=== PATIENT | male | born 1960 | race Caucasian/White ===

== ENCOUNTER 2019-07-10 11:48 | Inpatient (IN) | payer OTHER, BC ==
[2019-07-10] VITALS (506 sets, daily range): BP systolic 126–182; BP diastolic 76–124; PULSE 93–154; TEMP 97.6–99.1; O2SAT 80–100
[~2019-07-10] VITALS: Ht 172.7 cm; Wt 71.9 kg
[~2019-07-10 11:48] MED LIST: EFFEXOR 75M75 MG/TAB PO
--- NOTE | 2019-07-10 12:40 | NUR ---
Patient arrives via EMS to ICU 1 and is transferred to bed and monitors. Patient is A&Ox3, reports manageable pain to left wrist which is wrapped with 4x4 gauze and coban for pressure dressings. Radial pulse distal to dressing site is readily palpable. See associated documentation of VS and assessment. Peripheral IV sites x2 are uncomplicated and flush well. Care assumed at this time.
--- NOTE | 2019-07-10 13:04 | NUR ---
Dr. De Leon notified of patient arrival and location. states he will be in shortly.
--- NOTE | 2019-07-10 13:15 | NUR ---
Dr. De Leon at bedside and takes down dressing to left wrist for assessment of wound. POC discussed to include operative wash out of wound and suture to affected tissues. Patient is agreeable to this. Care ongoing.
--- NOTE | 2019-07-10 13:30 | NUR ---
Dr. Layton rounds at this time. All orders as entered CPOE.
--- NOTE | 2019-07-10 14:38 | NUR ---
Patient departs with OR staff x2. LR sent on straight tubing per verbal request of PAPER GUILLOTINE OPERATOR. Patient chart with signed consent is sent with and verbal confirmation exchanged with OR staff regarding patient's suicide precaution and 1:1 status to be maintained.
[2019-07-10] MEDS ORDERED: MELATONIN EXTRA1 TAB PO (14:45)
--- NOTE | 2019-07-10 16:35 | NUR ---
Patient returns from PACU post operatively with prior report recieved from GIOVANNA Freeman. Patient is returned to ICU monitors. VS as charted. Patient is A&Ox3 with slightly impulsive behavior noted at this time. Left arm with adaptic, 4x4's, softroll, kerlix, plaster splint and ANA wrap in place.
--- NOTE | 2019-07-10 16:45 | NUR ---
Dr. De Leon called and request made for Lovenox for VTE prophylaxis. provides VORB for pharmacy to dose this. See associated CPOE order. Care ongoing.
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
--- NOTE | 2019-07-10 19:10 | NUR ---
PATIENT TALKATIVE ABOUT SELF. MAKES EYE CONTACT, WANTS TO LEAVE
[2019-07-10 21:48] LABS: HEMOGLOBIN 12.4 g/dl (13.5-18.0)
[2019-07-10 22:07] LABS: HEMATOCRIT 36.3 % (42.0-52.0)
[2019-07-11] VITALS (803 sets, daily range): BP systolic 122–1174; BP diastolic 11–124; PULSE 59–121; TEMP 97.1–98.5; O2SAT 49–100
--- NOTE | 2019-07-11 03:15 | NUR ---
PATIENT AND STAFF SPONGE BATH, CHANGE OF LINEN, FROM 0315 TO 0400,PATIENT BECOMES MORE COOPERATIVE AFTER CLEANING, FLORES REMOVED CAUSES BURNING SENSATION WHEN INSERTED
[2019-07-11 05:25] LABS: BASO % 0.1 % (0.0-2.0); GRAN # 5.6 (1.4-6.5); GRAN % 83.2 % (42.2-75.2); HEMOGLOBIN 11.3 g/dl (13.5-18.0); LYMPH # 0.5 (1.2-3.4); MEAN CELL VOLUME 95 fl (80.0-100.0); MEAN CORPUSCULAR HEMOGLOBIN 33 pg (27.0-31.0); MEAN CORPUSCULAR HGB CONC 35 g/dl (33.0-37.0); MONO # 0.6 (0.1-0.6); MONO % 9.1 % (1.7-9.3); PLATELET COUNT 248 K/mm3 (130-400); RED BLOOD COUNT 3.42 M/mm3 (4.20-5.60); REDCELL DISTRIBUTION WIDTH-CV 12.2 % (11.5-14.5)
[2019-07-11 05:26] LABS: HEMATOCRIT 32.6 % (42.0-52.0)
[2019-07-11 05:29] LABS: INR 0.8 (0.8-3.0); PROTHROMBIN TIME 9.6 SECONDS (9.7-12.8)
[2019-07-11 05:33] LABS: ALANINE AMINOTRANSFERASE 54 U/L (21-72); ALBUMIN 3.6 gm/dL (3.5-5.0); ALKALINE PHOSPHATASE 86 U/L (50-136); ANION GAP 7 mmol/L (7-16); AST,SGOT 38 U/L (15-37); BILIRUBIN,TOTAL 0.4 mg/dL (0.0-1.0); BLOOD UREA NITROGEN 11 mg/dL (9-20); CALCIUM 8.9 mg/dL (8.4-10.2); CARBON DIOXIDE 24 mmol/L (22-30); CHLORIDE 99 mmol/L (98-107); CREATININE, serum 0.81 (0.66-1.25); GLUCOSE 147 mg/dL (74-106); MAGNESIUM 2.2 mg/dL (1.6-2.3); PHOSPHOROUS 2.8 mg/dL (2.5-4.5); POTASSIUM 4.5 mmol/L (3.4-5.0); SODIUM 131 mmol/L (137-145); TOTAL PROTEIN 6.3 gm/dL (6.4-8.2)
[2019-07-11 05:39] LABS: ALCOHOL(ethanol),MEDICAL < 10 mg/dL
--- NOTE | 2019-07-11 07:10 | NUR ---
Bedside report recieved from Gavin HEREDIA. Patient sitting on side of bed, very talkative. Has multiple requests and concerns for this nurse.
--- NOTE | 2019-07-11 09:44 | NUR ---
[facility] screeners in room with patient.
--- NOTE | 2019-07-11 10:57 | NUR ---
Calls nurse to room and asks if "the lady has made her decision? Are they going to hang me?" Informed patient that I haven't spoken to her yet and that they don't hang people, they are here to help him. Very tearful
--- NOTE | 2019-07-11 13:10 | NUR ---
Patient out of bed and alarm sounds, RN at bedside. Multiple attempts to redirect and finally able to get back to side of bed. RN turns back and patient stands and takes step and falls. No injury at this time, did not hit head. Dr. Rader and David Collins APRN both notified of fall. Talha Morocho RN and Geneva Barron RN both outside room and witness fall.
--- NOTE | 2019-07-11 13:28 | NUR ---
ENDODONTICS DENTIST student inquired about the patient's status in order to complete initial intake. The patient was screened by Erma earlier this day and will go someplace for inpatient psychiatric services, voluntarily, currently awaiting a bed. Per nurse the patient may be sent via [facility]. The nurse reports the patient is not being cooperative at this time.
[2019-07-11] MEDS ORDERED: ZESTRIL 10MG10 MG PO (15:04)
[2019-07-11] MEDS ORDERED: FOLIC ACID 11 MG/TA1 PO (15:05)
[2019-07-11] MEDS ORDERED: APRESOLINE 10MG10 MG PO (15:05)
--- NOTE | 2019-07-11 15:19 | NUR ---
REPORT CALLED TO CUT AND COVER LINE WORKER AT [place].
--- NOTE | 2019-07-11 15:46 | NUR ---
ZAINA CABA REFUSES PATIENT AT THIS TIME STATING THAT THEY FEEL HE NEEDS MORE "MEDICAL DETOX." PLASTICS SPREADING MACHINE OPERATOR AND [facility] NOTIFIED OF THIS UPDATE.
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
--- NOTE | 2019-07-11 18:58 | NUR ---
PATIENT NOW SLEEPING. VS WNL. WILL CONTINUE TO MONITOR.
--- NOTE | 2019-07-11 19:15 | NUR ---
REPORT GIVEN TO GIOVANNA BURKS. PATIENT CURRENTLY SLEEPING. PLAN OF CARE REVIEWED. CARE TURNED OVER.
[2019-07-12] VITALS (894 sets, daily range): BP systolic 14–170; BP diastolic 70–119; PULSE 49–95; TEMP 97.4–98.4; O2SAT 84–100
--- NOTE | 2019-07-12 01:00 | NUR ---
PT occasionally sitting up and pulling at upper extremity restraints, will do so for a few moments then lays back down and falls asleep. Awakens to voice, only oriented to self despite frequent reorientation to location and date. When given water, PT occasionally coughs with sips and other times swallows easily, 0045 Librium not administered as PT is not alert enough to take pills and could pose potential aspiration risk. Will continue to reorient, reassess, and monitor.
--- NOTE | 2019-07-12 03:00 | NUR ---
Both lower extremities are currently out of their restraints. Right leg has been out since 0100 and the left at 0300. PT has been moving legs in his sleep, appearing to try and get comfortable. PT still only A&O x1. Will continue to monitor and assess.
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
--- NOTE | 2019-07-12 07:08 | NUR ---
Report given to GIOVANNA Deleon.
--- NOTE | 2019-07-12 07:10 | NUR ---
Report recieved from Emily HEREDIA. Patient resting in bed with eyes closed at this time, offers no S/S of discomfort at this time. 2 wrist restraints on. Call light in reach and bed alarm in reach
--- NOTE | 2019-07-12 09:30 | NUR ---
calls in to check on patient. She is very tearful, states she had done some reading on OSH and states concern for going there. "I just don't want them to dope him up on a bunch of medicines and send him home." Talked with her about just waiting to see what comes on Sunday, acceptance still pending. Emotional support offered.
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
--- NOTE | 2019-07-12 14:30 | NUR ---
While doing bed, dressing from left wrist removed to change. Proximal incision continues to dehis further than had yesterday when this RN assessed. David Collins APRN notified and over to assess wound. If Dr. De Leon doesn't round on patient today/tonight, call tomorrow and inform. Wounds redressed and secured. Minimal sero sang drainage noted. Bed bath given to patient. Shaved with patient's permission, hair shampooed and all linens changed. Patient very appreciative, tearful when thanking RN.
--- NOTE | 2019-07-12 15:35 | NUR ---
calls in to check in on patient status again. Continues to be very tearful and shows concern for patient's well being and safety. Updates reviewed and states will call back at bedtime to check in. Emotional support given
[2019-07-13] VITALS (413 sets, daily range): BP systolic 127–155; BP diastolic 76–99; PULSE 53–74; TEMP 97.4–98.3; O2SAT 92–100
[2019-07-13 06:48] LABS: BASO # 0.1 (0.0-0.2); BASO % 0.9 % (0.0-2.0); EOS # 0.2 (0.0-0.7); EOS % 3.3 % (0-4.0); GRAN # 3.5 (1.4-6.5); GRAN % 61.6 % (42.2-75.2); LYMPH # 1.6 (1.2-3.4); LYMPH % 27.3 % (20.0-51.0); MEAN CELL VOLUME 98 fl (80.0-100.0); MEAN CORPUSCULAR HGB CONC 33 g/dl (33.0-37.0); MEAN PLATELET VOLUME 9.5 fl (7.4-10.4); MONO # 0.4 (0.1-0.6); MONO % 6.4 % (1.7-9.3); PLATELET COUNT 224 K/mm3 (130-400); RED BLOOD COUNT 2.98 M/mm3 (4.20-5.60); REDCELL DISTRIBUTION WIDTH-CV 12.5 % (11.5-14.5)
[2019-07-13 06:53] LABS: HEMATOCRIT 29.3 % (42.0-52.0); HEMOGLOBIN 9.8 g/dl (13.5-18.0); MEAN CORPUSCULAR HEMOGLOBIN 33 pg (27.0-31.0)
--- NOTE | 2019-07-13 07:05 | NUR ---
Report recieved from Allyn HEREDIA. Patient sleeping in bed at this time, offers no s/s discomfort or struggle. Bed alarms on at this time.
[2019-07-13 07:10] LABS: ALBUMIN 2.9 gm/dL (3.5-5.0); BILIRUBIN,TOTAL 0.2 mg/dL (0.0-1.0); CALCIUM 8.7 mg/dL (8.4-10.2); CREATININE, serum 0.81 (0.66-1.25); MAGNESIUM 1.8 mg/dL (1.6-2.3); POTASSIUM 3.9 mmol/L (3.4-5.0); TOTAL PROTEIN 5.4 gm/dL (6.4-8.2)
--- NOTE | 2019-07-13 09:45 | NUR ---
calls to check in on patient's status. Very tearful again today, asks RN to given patient her love and tell him she called. Patient very tearful after message relayed to him. Emotional support given to both.
--- NOTE | 2019-07-13 20:07 | NUR ---
PT RESTING IN BED, CALM, ALERT AND ORIENTED X4, ON ROOM AIR AND ROHITH ANY PAIN OR DISCOMFORT AT THIS TIME. ALSO, PT DENIES ANY THOUGHT OF HARMING HIMSELF AT THE MOMENT BUT JOKES AROUND AND SAYS "I'M GONNA RUN OUT OF HERE NAKED! NO I'M KIDDING." BED ALARM ON, PT REMAINS ON KRAMER GOWN, ON STRICT 1:1 OBSERVATION. ALL SHARPS AND CORDS REMOVED FROM ROOM, EXCEPT FOR MONITOR AND CALL LIGHT. WILL CONTINUE MONITORING.
--- NOTE | 2019-07-13 23:57 | NUR ---
PT AWAKE, REQUESTING FOR ATIVAN TO HELP HIM SLEEP AND THIS RN EX[LAINED TO PT THAT THAT'S NOT WHAT IT IS FOR HE IS ON CIWA PROTOCOL. ON TOP OF THAT, HE IS STILL ON PRECEDEX WELL AND GOT HIS MELATONIN EARLY HE REQUESTED. THIS WAS EXPLAINED TO PT, AND THAT ATIVAN IS GIVEN DEPENDING ON HIS SCORE. PT ASKED, "WHAT DO I NEED TO DO TO SCORE?" THIS SANITARY LANDFILL OPERATOR THEN EXPLAINED TO PT THAT IT DEPENDS ON SEVERAL FACTORS AND EVERY SCORE CORESPONDS TO DIFFERENT ATIVAN DOSING, PT STARTED GETTING ANXIOUS AND A LITTLE BIT AGITATED. PT VERBALIZED "QUIT PLAYING GAMES WITH ME, I DID NOT HAVE TO DO THIS WITH THE OTHER NURSE, I JUST ASKED AND IT WAS GIVEN TO ME." AT THIS TIME, IT WAS CLOSE ENOUGH TO MIDNIGHT AND PT SCORED 4 FOR CIWA, AND ATIVAN WAS GIVEN. WILL CONTINUE MONITORING, PT REMAINS 1:1 OBSERVATION, ALL SI PRECAUTION ON PLACED.
[2019-07-14] VITALS (15 sets, daily range): BP systolic 108–175; BP diastolic 83–118; PULSE 55–112; TEMP 97.6–98.7
--- NOTE | 2019-07-14 01:11 | NUR ---
PT ASKING FOR SOMETHING TO SLEEP AGAIN HE IS WORRIED ABOUT AND MISSES HER, PT ALREADY GIVEN MELATONIN, ATIVAN AND STILL ON PRECEDEX DRIP. PT OFFERED TO TURN TV AND LIGHTS OFF TO DECREASE STIMULATION, PT REFUSED. WHEN PT WAS ASKED WHAT HE NORMALLY TAKES AT HOME TO HELP WITH SLEEPING, PT VERBALIZED HE TAKES MELATONIN 30 MG AT NIGHT. WHEN ASKED HOW MANY TABLETS AND WHERE HE BUYS IT HE RESPONDED "THREE TABLETS, I PUT IT UNDER THE TOUNGE AND IT DISSOLVES. I BUY IT AT [employer]." THIS RN THEN TOLD PT THAT I AM NOT FAMILIAR WITH THAT DOSAGE/TABLET MELATONIN COMES NORMALLY BY 3 MG. WILL CONTINUE MONITORING AND WILL RE-ASSESS AT 0200.
--- NOTE | 2019-07-14 02:03 | NUR ---
PRECEDX OFF, PT DOING OKAY AND HAS BEEN CALM THE WHOLE NIGHT. PT REMAINS 1:1, ON SI PRECAUTION. WILL CONTINUE MONITORING.
--- NOTE | 2019-07-14 03:19 | NUR ---
PT GOT UP IN BED WITHOUT ASKING FOR ANY HELP, BED ALRM ON AND ALARMED, PT SAT BACK IN BED AFTER FEW MINUTES OF STANDING UP, PUT BED ALRM ON AGAIN AND SOON THIS BATTERY HAND WALKED OUT OF THE DOOR, PT PURPOSELY GOT UP TO MAKE THE BED ALRM GO AND DID THE SAME THING FOR ABOUT 5X. WHEN ASKED WHY HE'S DOING IT, PT VERBALIZED "TO AGITATE YOU, AND TO GIVE YOU SOMETHING TO DO." PT KEEPS RAMBLING AND SAYING INAPPROPRIATE STUFF TO THIS NURSE, UNSUCCESSFUL REDIRECTION, PRECEDEX STARTED AGAIN AT THIS POINT.
--- NOTE | 2019-07-14 03:30 | NUR ---
PT CONTINUED RAMBLING IN ROOM, THIS NURSE WAS OUTSIDE PT'S ROOM BY THE WINDOW CHARTING AND PT IS CAT-CALLING AT THIS CHILD CARE WORKER. AND AGAIN, REDIRECTING UNSUCCESSFUL EARLIER, NO ATTEMPTS MADE AGAIN. PT STOPPED EVENTUALLY AND LAY IN BED ON HIS OWN. BED ALRM ON. PT RAMAINS 1:1, ON SI PRECAUTIONS AND WILL CONTINUE MONITORING.
--- NOTE | 2019-07-14 04:36 | NUR ---
THIS NATUROPATHIC PHYSICIAN ENTERED ROOM AND REPLACED PAPER TRASH BAG, PT YELLED "NOW WHAT ARE YOU DOING! EVERYTIME YOU COME HERE YOU KEEP BREAKING STUFF!" THIS NATUROPATHIC PHYSICIAN THEN EXPLAINED THAT I WASN'T BREAKING ANYTHING AND WAS JUST REPLACING TRASH BAG. PT THEN VERBALIZED, "I WAS JUST MESSING WITH YOU. I AM JUST TRYING TO GIVE YOU HARD TIME." MADE PT AWARE THAT THIS RN I AWARE. WILL CONTINUE MONITORING.
--- NOTE | 2019-07-14 05:41 | NUR ---
VIOLENT RESTRAINTS KENNEDY PUT BACK TO ITS SPOT AT TELE DESK.
--- NOTE | 2019-07-14 07:05 | NUR ---
Bedside report received from GIOVANNA Garcia. Patient currently lying in bed with no complaints. His eyes are closed, but he appears to be awake d/t his movements in the bed. Care taken over at this time.
[2019-07-14 07:07] LABS: BASO # 0.1 (0.0-0.2); BASO % 1.5 % (0.0-2.0); EOS # 0.3 (0.0-0.7); EOS % 5.4 % (0-4.0); GRAN # 2.7 (1.4-6.5); GRAN % 55.7 % (42.2-75.2); HEMOGLOBIN 10.5 g/dl (13.5-18.0); LYMPH # 1.3 (1.2-3.4); LYMPH % 27.6 % (20.0-51.0); MEAN CELL VOLUME 98 fl (80.0-100.0); MEAN CORPUSCULAR HEMOGLOBIN 32 pg (27.0-31.0); MEAN CORPUSCULAR HGB CONC 33 g/dl (33.0-37.0); MEAN PLATELET VOLUME 9.1 fl (7.4-10.4); MONO # 0.4 (0.1-0.6); MONO % 9.2 % (1.7-9.3); PLATELET COUNT 243 K/mm3 (130-400); RED BLOOD COUNT 3.24 M/mm3 (4.20-5.60); REDCELL DISTRIBUTION WIDTH-CV 12.2 % (11.5-14.5)
--- NOTE | 2019-07-14 07:13 | NUR ---
REPORT GIVEN TO GIOVANNA JOHNSON.
[2019-07-14 07:17] LABS: HEMATOCRIT 31.6 % (42.0-52.0)
[2019-07-14 07:25] LABS: ALBUMIN 3.4 gm/dL (3.5-5.0); BILIRUBIN,TOTAL 0.3 mg/dL (0.0-1.0); CALCIUM 8.8 mg/dL (8.4-10.2); CREATININE, serum 0.74 (0.66-1.25); POTASSIUM 3.8 mmol/L (3.4-5.0); TOTAL PROTEIN 6.1 gm/dL (6.4-8.2)
[2019-07-14 07:37] LABS: INR 0.8 (0.8-3.0); PROTHROMBIN TIME 9.7 SECONDS (9.7-12.8)
--- NOTE | 2019-07-14 08:25 | NUR ---
During morning assessment and medication administration, patient states that "When i get out of that place, [place] or whatever it is called, I'm going to go home, get on my motorcycle, withdraw $10,000-$15,000 out of the bank, leave and never come back." He also becomes very tearful, asking to talk to his . I state that as per our policy, i am unable to let him use the phone at this time. I encourage him to try to focus on staying positive about his situation. I also let him know the hospitalist will be here in a little bit to see him and hopefully we will get an update on his place on the waiting list for [place]. He states that he's been waiting for days and hasn't heard anything. "Nothing is going to happen today. I'm stuck in this half-way and no one is letting me talk to my or anything!"
--- NOTE | 2019-07-14 08:53 | NUR ---
Geni, from [facility], calls to ask for updated notes on this patient so that she can update the [facility]. Notes and Progress Notes faxed to her office.
--- NOTE | 2019-07-14 09:29 | NUR ---
Patient's , Chari, calls for updated at this time. She is updated on patient's current situation. Currently he is lying in bed, awake, somewhat emotional, crying at times. She is notified that we are waiting to hear update from [facility]
[2019-07-14 13:07] LABS: COLLECTION METHOD CLEAN CATCH
[2019-07-14 13:12] LABS: PH 7 (5-8); SQUAMOUS EPITHELIAL 0-2 /hpf; URINE APPEARANCE Clear; URINE BACTERIA None Seen /hpf; URINE BILIRUBIN Negative (NEGATIVE); URINE BLOOD 1+ (NEGATIVE); URINE COLOR Straw; URINE GLUCOSE Negative (NEGATIVE); URINE KETONE Negative (NEGATIVE); URINE LEUKOCYTE ESTERASE Negative (NEGATIVE); URINE NITRATE Negative (NEGATIVE); URINE PROTEIN(semi-quant) Negative (NEGATIVE); URINE RBC 0-2 /hpf; URINE UROBILINOGEN Negative (NEGATIVE); URINE WBC 0-2 /hpf
--- NOTE | 2019-07-14 13:39 | NUR ---
Call received from Camila from [facility]. She states that she will be here in a couple hours to see the patient for an in person screen.
--- NOTE | 2019-07-14 14:10 | NUR ---
A sales service representative from [employer] in [place] on their way to assess the patient this day.
--- NOTE | 2019-07-14 14:30 | NUR ---
Call from Camila [facility], she states that she will get some basic information over the phone from me about the patient and she will start the process of getting him accepted to their facility. All required information given to her via phone. Paperwork faxed earlier in the day. She states she will call me back with an update later today.
--- NOTE | 2019-07-14 17:47 | NUR ---
Call received from [facility]. Patient has been denied admission to their facility d/t them not being able to meet the level of care needed for this patient. Camila states that S will be calling soon with information regarding placing the patient somewhere else.
--- NOTE | 2019-07-14 19:00 | NUR ---
Call placed to [facility] service. Spoke to Geni. She is updated on denial from [facility]. She states that she will be in contact with OSH, update them and get him back on the list. She states that she will call the ICU back with an update as soon as she knows something. Report given to GIOVANNA Garcia.
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
--- NOTE | 2019-07-14 21:36 | NUR ---
2119- BED ALARM GOING OFF PT TRYING TO GET OUT OF BED. THIS CONTINUOUS STILL OPERATOR ASKED PT WHERE IS HE TRYING TO GO, PT VERBALIZED, "I'M GONNA GO OUT. I'M GONNA ASK SOMEONE TO HELP ME." THIS RN OFFERED HELP, PT DENIED AND VERBALIZED "YOU'RE JUST GONNA SAY NO, I KNOW IT." PT THEN STARTED WALKING OUT OF HIS ROOM DESPITE THIS RN TRYING TO TALK TO HIM AND EXPLAINING HE IS NOT ALLOWED TO GET OUT OF HIS ROOM, PT CONTINUED TO DO IT AND WAS WALKING TOWARDS ROOM 3&4 AND NURSE MICHELLE STEPPED OUT OF ROOM 4 AND HELPED THIS CONTINUOUS STILL OPERATOR AND ASKED PT TO GO BACK TO HIS ROOM WHICH PT OBLIDGED TO DO. THIS RN THEN GRABBED SOME ATIVAN AND HALDOL THAT WAS GIVEN TO PT. PT THEN RE-ORIENTED TO WHAT JUST HAPPENED, AND WHY HE CAN'T SMOKE WHILE IN THE HOSPITAL. PT THEN VERBALIZED, "I DID NOT DO ANY TROUBLE, I WAS SLEEP WALKING." WHEN TOLD THAT HE SEEMS TO BE FULLY AWAKE, PT VERBALIZED "NOW YOU'RE JUST GONNA WRITE A BIG REPORT ABOUT ME THAT I WENT OUT OF MY ROOM INSTEAD OF JUST LETTING IT GO!"
--- NOTE | 2019-07-14 23:47 | NUR ---
PT GOT UP AGAIN WITHOUT CALLING FOR ASSISTANCE, VERBALIZING "I NEED MY PANTS. I WANT TO PUT PANTS ON!" THIS MANAGEMENT PROFESSIONAL EXPLAINED TO PT HE CAN'T WEAR PANTS YET AND HAS TO STAY WEARING THE KRAMER GOWN PART OF THE PROTOCOL AND FOR SAFETY WELL. PT WALKED AND PACED IN ROOM FOR 2 MINS AND WENT BACK TO BED AFTER. PT THEN WAS ASKING FOR LUNCH TRAY, PT RE-ORIENTED TO PLACE, TIME, AND SITUATION. BED ALARM ON, CALL LIGHT WITHIN REACH, ON 1:1 OBSERVATION AND SI PRECAUTIONS REMAINS IN PLACE AND FOLLOWED.
[2019-07-15] VITALS (7 sets, daily range): BP systolic 126–143; BP diastolic 72–103; PULSE 63–99; TEMP 97–98.6
--- NOTE | 2019-07-15 07:06 | NUR ---
REPORT GIVEN TO GIOVANNA JOHNSON.
--- NOTE | 2019-07-15 07:11 | NUR ---
Report received from GIOVANNA Garcia. Patient currently resting in bed with no complaints. VS WNL. Care taken over at this time.
--- NOTE | 2019-07-15 09:55 | NUR ---
Patient's left wrist bandage changed at this time. Incisions continue to appear clean and dry with no evidence of infection.
--- NOTE | 2019-07-15 10:53 | NUR ---
[facility] CALLS FOR NUMBER FOR DOC TO DOC REPORT. THEY STATE THAT PATIENT HAS BEEN ACCEPTED AND WILL BE ABLE TO BE ADMITTED TODAY. RN CLINICAL RESEARCH CALLED WITH THIS UPDATE.
--- NOTE | 2019-07-15 12:00 | NUR ---
Patient dressed and ready to go. , Chari here to see the patient. Daughter also here. Patient is told that they are allowed to visit as long as he can maintain good composure and control his behavior. He verbalizes understanding.
--- NOTE | 2019-07-15 12:31 | NUR ---
Report called to [facility] RN, Slime. [facility] service should be here any time to pick patient up.
--- NOTE | 2019-07-15 13:01 | NUR ---
The patient is transferring this day, 07/14 to [facility] on an involuntary basis. [facility] is here to transport the patient. There are no additional needs at this time.
--- NOTE | 2019-07-15 13:05 | NUR ---
Patient leaves with [facility] at this time.
== END 2019-07-15 13:10 | DRG 580 ==
LOC: ICU 11:48
PROVIDERS: Nurse Practitioner Family; Plastic Surgery; Student in an Organized Health Care Education/Training Program; ADMIT Hospitalist
PROC: 0LQ60ZZ Repair Left Lower Arm and Wrist Tendon, Open Approach (ICD-10-PCS; principal; 2019-07-10 15:00)
PROC: 0JQH0ZZ Repair Left Lower Arm Subcutaneous Tissue and Fascia, Open Approach (ICD-10-PCS; 2019-07-10 15:00)
DX: S61.512A Laceration without foreign body of left wrist, initial encounter (principal); T81.30XA Disruption of wound, unspecified, initial encounter; E87.1 Hypo-osmolality and hyponatremia; G47.00 Insomnia, unspecified; F32.9 Major depressive disorder, single episode, unspecified; F10.129 Alcohol abuse with intoxication, unspecified; F41.9 Anxiety disorder, unspecified; I10 Essential (primary) hypertension; D64.9 Anemia, unspecified; F43.10 Post-traumatic stress disorder, unspecified; Y90.6 Blood alcohol level of 120-199 mg/100 ml; X78.1XXA Intentional self-harm by knife, initial encounter; Y92.009 Unspecified place in unspecified non-institutional (private) residence as the place of occurrence of the external cause; F17.210 Nicotine dependence, cigarettes, uncomplicated; Z88.0 Allergy status to penicillin
CPT/HCPCS: 99222-AI; 99233-AI; 99239; A4314; J0330; J0360; J0690; J1200; J1630; J1650; J2060; J2250; J2405; J2704; J3010; J3411; J7030; J7120

== ENCOUNTER 2019-09-19 17:49 | Emergency (ER) | payer BC ==
[~2019-09-19] VITALS: Ht 172.7 cm; Wt 79.5 kg
[~2019-09-19 17:49] MED LIST changes: +APRESOLINE 10MG10 MG PO; +FOLIC ACID 11 MG/TA1 PO; +MELATONIN EXTRA1 TAB PO; +ZESTRIL 10MG10 MG PO
[2019-09-19 18:38] LABS: BASO # 0.1 (0.0-0.2); EOS # 0.3 (0.0-0.7); EOS % 3.2 % (0-4.0); GRAN # 5.5 (1.4-6.5); GRAN % 57.6 % (42.2-75.2); HEMATOCRIT 42.3 % (42.0-52.0); LYMPH # 3.1 (1.2-3.4); LYMPH % 31.9 % (20.0-51.0); MEAN CELL VOLUME 94 fl (80.0-100.0); MEAN CORPUSCULAR HEMOGLOBIN 31 pg (27.0-31.0); MEAN CORPUSCULAR HGB CONC 33 g/dl (33.0-37.0); MONO # 0.6 (0.1-0.6); PLATELET COUNT 362 K/mm3 (130-400); RED BLOOD COUNT 4.52 M/mm3 (4.20-5.60); REDCELL DISTRIBUTION WIDTH-CV 13.8 % (11.5-14.5)
[2019-09-19 18:44] LABS: ALANINE AMINOTRANSFERASE 20 U/L (4-49); ALBUMIN 4.6 gm/dL (3.5-5.0); ALCOHOL(ethanol),MEDICAL 287 mg/dL; ALKALINE PHOSPHATASE 85 U/L (50-136); ANION GAP 12 mmol/L (7-16); AST,SGOT 46 U/L (15-37); BILIRUBIN,TOTAL 0.4 mg/dL (0.0-1.0); BLOOD UREA NITROGEN 8 mg/dL (9-20); CALCIUM 9.6 mg/dL (8.4-10.2); CARBON DIOXIDE 21 mmol/L (22-30); CHLORIDE 108 mmol/L (98-107); GLUCOSE 111 mg/dL (74-106); POTASSIUM 3.7 mmol/L (3.4-5.0); SODIUM 141 mmol/L (137-145); TOTAL PROTEIN 8.1 gm/dL (6.4-8.2)
[2019-09-19 18:50] LABS: ACETAMINOPHEN < 10 ug/mL (10-30); SALICYLATE < 1.0 mg/dL
[2019-09-19 19:11] VITALS: BP 142/88; PULSE 104; TEMP 98
== END 2019-09-19 19:20 | disposition home or self-care (01) ==
LOC: COL.ER 17:49
PROVIDERS: Emergency Medicine
DX: S09.90XA Unspecified injury of head, initial encounter (principal); S00.91XA Abrasion of unspecified part of head, initial encounter; F10.129 Alcohol abuse with intoxication, unspecified; I10 Essential (primary) hypertension; F17.210 Nicotine dependence, cigarettes, uncomplicated; W01.198A Fall on same level from slipping, tripping and stumbling with subsequent striking against other object, initial encounter
CPT/HCPCS: J1630; J7030